=== PATIENT | male | born 1965 | race Caucasian/White ===

== ENCOUNTER → 2017-01-03 | Outpatient (CLI) | payer OTHER ==
[~2017-01-03] MED LIST: ESOM20CA PO; GADOBUTROL 10 MMOL/10 ML VIAL IV ONE
--- NOTE | 2017-01-03 16:38 | KCIC ---
PROCEDURE MR of the left ankle and MR of the left foot HISTORY Spontaneous swelling of the left ankle and foot. Lesion of the 3rd metatarsal. No injury. Sudden onset of pain and swelling 1 month ago. TECHNIQUE Routine multiplanar sequences are obtained separately through the left ankle and through the left foot. COMPARISON None FINDINGS Left ankle findings The peroneal tendons are intact. Anterior talofibular ligament is poorly defined. Calcaneofibular ligament is poorly defined. Posterior talofibular ligament also is poorly defined. Findings are compatible with sprain/scarring from prior injury. Anterior inferior tibiofibular ligament is intact. Posterior tibial and flexor tendons are intact. No acute medial ligament tear. Anterior tibial and extensor tendons are intact. Achilles tendon intact. There is minimal fusiform thickening and signal within the plantar aponeurosis, central band, about 2 centimeters distal to the aponeurosis origin. This could represent mild fasciitis or plantar fibroma. Subtalar joints are patent. Tarsal sinus intact. Talar dome intact. No significant effusion. Left foot findings As per patient, outside radiographs demonstrated a lytic lesion of the 3rd metatarsal. MR demonstrates a fracture through the proximal shaft of the 3rd metatarsal. There is some marginal callus formation. Extensive marrow edema through the entire shaft and into the base of the 3rd metatarsal. At the level of the fracture, there is small fluid signal lesion measuring 8 millimeters long axis. There is also loss of T1 signal within the shaft of the 3rd metatarsal. Abnormal soft tissue surrounds the 3rd metatarsal particularly the level of the fracture. Some of this is likely callus, in combination with blood product. There is some fluid signal and edema signal extending into the adjacent muscle and soft tissues. No additional fracture identified. No evidence dislocation. The visualized tendons appear intact. No significant tendon sheath fluid. Lisfranc ligament complex is intact as is tarsometatarsal joint alignment. IMPRESSION 1. Nonacute fracture through the proximal shaft of the 3rd metatarsal. In correlation with a history of no trauma and osteolytic lesion on outside x-ray, pathologic fracture should be considered. However, there are no specific MR findings to suggest a specific pathologic etiology. There is diffuse marrow heterogeneity throughout the 3rd metatarsal shaft, and a small cystic component within metatarsal at the level of the fracture, but at least some of this could just be due to the fracture itself, versus pre-existing bone lesion. 2. Sprain/scarring of the lateral ankle ligaments. 3. Mild thickening and signal at the plantar aponeurosis, about 2 centimeters beyond the origin could represent mild fasciitis or plantar fibroma. Electronically signed by: Manoj Arthur MD (January 03, 2017 16:37:12)
== END | disposition home or self-care (01) ==
LOC: KCIC MRI 14:25
PROVIDERS: ATTEND Nurse Practitioner Primary Care
DX: M25.572 Pain in left ankle and joints of left foot (principal); M25.472 Effusion, left ankle; M25.475 Effusion, left foot
CPT/HCPCS: 73720; 73723; A9585